=== PATIENT | female | born 1995 | race African-American/Black ===

== ENCOUNTER 2018-09-20 16:07 | Emergency (ER) | payer SELFPAY ==
[~2018-09-20] VITALS: Ht 162.6 cm; Wt 73.9 kg
[2018-09-20 16:15] VITALS: Ht 162.6 cm; Wt 73.9 kg
[2018-09-20 18:25] VITALS: BP 122/81
== END 2018-09-20 18:25 | disposition home or self-care (01) ==
LOC: ED 16:07
DX: N76.0 Acute vaginitis (principal)
CPT/HCPCS: 87491; 87591

== ENCOUNTER 2018-11-20 12:08 | Emergency (ER) | payer SELFPAY ==
[~2018-11-20] VITALS: Ht 132.1 cm; Wt 72.1 kg
[2018-11-20 12:20] VITALS: Ht 132.1 cm; Wt 72.1 kg
[2018-11-20 13:50] VITALS: BP 105/54
== END 2018-11-20 13:50 | disposition home or self-care (01) ==
LOC: ED 12:08
DX: N76.0 Acute vaginitis (principal)
CPT/HCPCS: 87491; 87591

== ENCOUNTER 2019-07-25 12:26 | Emergency (ER) | payer MEDICAID ==
[~2019-07-25] VITALS: Ht 160 cm; Wt 73.0 kg
[2019-07-25 12:37] VITALS: Ht 160 cm; Wt 73.0 kg
[2019-07-25 13:36] LABS: microscopic required? NO
[2019-07-25 13:48] LABS: UA SPECIFIC GRAVITY 1.015 (1.005-1.035); urine erythrocyte NEGATIVE (NEGATIVE)
[2019-07-25 15:23] VITALS: BP 108/69
== END 2019-07-25 15:23 | disposition home or self-care (01) ==
LOC: ED 12:26
PROVIDERS: Emergency Medicine
DX: N76.0 Acute vaginitis (principal)
CPT/HCPCS: 87491; 87591